=== PATIENT | female | born 1965 | race Asian ===

== ENCOUNTER 2024-03-05 21:11 | Emergency (ER) | payer OTHER ==
[~2024-03-05] VITALS: Ht 167.6 cm; Wt 80.5 kg
[2024-03-05 23:59] VITALS: BP 127/75; PULSE 62; RESP 16; TEMP 98
[2024-03-06] MEDS: ACETAMINOPHEN 325 MG TABLET PO ONE (00:13)
== END 2024-03-06 00:30 | disposition home or self-care (01) ==
LOC: EMS 21:27
DX: S93.402A Sprain of unspecified ligament of left ankle, initial encounter (principal); M25.512 Pain in left shoulder; Z98.890 Other specified postprocedural states; V03.99XA Pedestrian with other conveyance injured in collision with car, pick-up truck or van, unspecified whether traffic or nontraffic accident, initial encounter; Y93.89 Activity, other specified; Y92.89 Other specified places as the place of occurrence of the external cause; Y99.8 Other external cause status
CPT/HCPCS: 99284; 73030-TC; 73610-TC; Z7502; Z7610

== ENCOUNTER 2024-03-06 13:53 | Emergency (ER) | payer OTHER ==
[~2024-03-06] VITALS: Ht 162.6 cm; Wt 81.8 kg
[2024-03-06 13:57] VITALS: TEMP 98
[2024-03-06] MEDS: ACETAMINOPHEN 500 MG TABLET PO ONE (15:41)
[2024-03-06 17:57] VITALS: BP 120/67; PULSE 65; RESP 16
== END 2024-03-06 18:14 | disposition home or self-care (01) ==
LOC: EMS 13:53
DX: S80.11XA Contusion of right lower leg, initial encounter (principal); Z98.890 Other specified postprocedural states; X58.XXXA Exposure to other specified factors, initial encounter; Y93.89 Activity, other specified; Y92.89 Other specified places as the place of occurrence of the external cause; Y99.8 Other external cause status
CPT/HCPCS: 99284; 73562-TC; 73590-TC; Z7502; Z7610